=== PATIENT | male | born 1950 | race African-American/Black ===

== ENCOUNTER 2017-05-07 12:41 | Inpatient (IN) ==
--- NOTE | 2017-05-07 13:19 | PROVIDER DOCUMENTATION ---
HPI-Neurological Disorder - General Chief Complaint: Altered Mental Status Stated Complaint: UNRESPONSIVE Time Seen by Provider: 05/07/17 12:45 Source: patient, EMS notes reviewed, other ([facility] report) Allergies/Adverse Reactions: Patient Allergies Allergy/AdvReac Type Severity Reaction Status Date / Time No Known Allergies Allergy Verified 09/04/16 16:27 Home Medications: Home Medication List Medication Instructions Recorded Confirmed Last Taken Type Aspirin EC 1 tab PO DAILY 12/03/13 05/07/17 1 Day Ago History Clopidogrel [Plavix] 75 mg PO DAILY 12/03/13 05/07/17 1 Day Ago History Donepezil [Aricept] 10 mg PO QHS 12/03/13 05/07/17 1 Day Ago History Furosemide [Lasix] 40 mg PO DAILY 12/03/13 05/07/17 1 Day Ago History Insulin Glargine [Lantus] 40 unit SUBQ QAM 12/03/13 05/07/17 1 Day Ago History Metoprolol [Lopressor] 50 mg PO BID 12/03/13 05/07/17 1 Day Ago History Multivitamin [Multi-Day Vitamins] 1 each PO DAILY 12/03/13 05/07/17 1 Day Ago History Pantoprazole Sodium 20 mg PO DAILY 12/03/13 05/07/17 1 Day Ago History Docusate Sodium [Colace] 100 mg PO DAILY 03/14/15 05/07/17 1 Day Ago History Insulin Lispro [Humalog Kwikpen] 4 unit SQ BID 03/14/15 05/07/17 1 Day Ago History Gabapentin [Neurontin] 600 mg PO BID 09/04/16 05/07/17 1 Day Ago History Insulin Glargine,Hum.rec.anlog 20 unit SQ QHS 09/04/16 05/07/17 1 Day Ago History [Lantus Solostar] Lisinopril 2.5 mg PO DAILY 09/04/16 05/07/17 1 Day Ago History Metformin [Glucophage] 500 mg PO WBREAKFAST 09/04/16 05/07/17 1 Day Ago History - History of Present Illness-Neuro Nature of Presenting Problem: Patient is a pleasant 66 yrs old gentleman with history of dementia and multiple other comorbidites , the [place] resident , was sent from there for being found unresponsive and no pulse per the [facility] staff report Per EMS he had pulse and awake when they reached here. He is up here and talking. His response is slow . He is not oriented which seems to be his baseline. He has chronic right sided weakness which is due to the history of right sided CVA. He does not have any other particular complaint. No pain, no headache, no dizziness, no chest pain , no N/V,no diarrhea or constipation or any other complaints at all. Approximate time patient was last seen normal?: 11:00 Character of Altered Mental Status: reports: unchanged from baseline (At this point, seems to be around baseline.) Any recent trauma/injury?: reports: none New weakness or altered sensation location:: reports: none Cognitive Baseline: alert but disoriented Associated Symptoms: reports: denies symptoms, slurred speech Similar Symptoms Previously?: Yes (The previous ER visit in 08/2016 looks like having the same presentation . ) Recently seen or treated by another doctor?: No Review of Systems - Adult - REVIEW OF SYSTEMS - ADULT Constitutional: reports: no symptoms reported Eyes: reports: no symptoms reported Ears, Nose, Mouth & Throat: reports: no symptoms reported Cardiovascular: reports: no symptoms reported Respiratory: reports: no symptoms reported Gastrointestinal: reports: no symptoms reported Genitourinary: reports: no symptoms reported Musculoskeletal: reports: no symptoms reported Neurological: reports: no symptoms reported, other (Chronic right sidedweakness) Endocrine: reports: no symptoms reported Hematologic/Lymphatic: reports: no symptoms reported Allergic/Immunologic: reports: no symptoms reported Past History - Adult - PAST MEDICAL HISTORY-ADULT Review of Records: reports: Old Records Reviewed Major Childhood Illnesses: reports: denies history Cardiovascular: reports: blood clots, CAD, HTN, hyperlipidemia, PAD, PVD Respiratory: reports: denies history Gastrointestinal: reports: denies history Obstetrical/Gynecological: reports: denies history Genitourinary: reports: denies history Musculoskeletal: reports: denies history Neurological: reports: CVA, stroke deficits (right side) Endocrine/Immune: reports: denies history Other Conditions: reports: denies history - FAMILY HISTORY Family History: reviewed, not pertinent - SOCIAL HISTORY Smoking: denies Living Situation: other (Senior Living) Physical Exam- Neurological - Physical Exam-Neuro Initial Vital Signs Reviewed: Yes General Appearance: appears well, mild distress, slow to respond Eye Exam: bilateral eye: normal inspection, PERRL, EOMI HENMT: normocephalic/atraumatic Head Injury: no evidence of injury Neck: non-tender Respiratory: chest non-tender, lungs clear, normal breath sounds. negative: rales, rhonchi, wheezing Cardiovascular: normal peripheral pulses Abdominal Exam: non tender, soft, no organomegaly, no pulsatile mass, distended Lymphatic: no adenopathy Extremity: normal range of motion, other (Right arm weakness chronic. Right leg s/p BKA) back joiner Exam: normal hearing Progress - PLAN OF CARE/RESULTS Progress/Plan/Lab Results: Vital Signs - 8 hr 05/07/17 13:02 05/07/17 14:54 05/07/17 16:49 Temperature 99.0 F Pulse Rate 67 70 68 Respiratory Rate 13 13 16 Blood Pressure 130/86 131/54 127/74 O2 Sat by Pulse Oximetry 98 97 97 05/07/17 17:50 05/07/17 18:50 05/07/17 19:39 Temperature Pulse Rate 68 68 64 Respiratory Rate 12 13 13 Blood Pressure 158/88 145/75 125/73 O2 Sat by Pulse Oximetry 97 98 95 05/07/17 19:41 Temperature Pulse Rate 66 Respiratory Rate 9 L Blood Pressure 125/73 O2 Sat by Pulse Oximetry 98 Laboratory Results - last 24 hr 05/07/17 05/07/17 05/07/17 12:50 12:50 12:50 WBC 10.49 RBC 4.50 L Hgb 13.0 L Hct 40.2 L MCV 89.3 MCH 28.9 MCHC 32.3 L RDW Std Deviation 15.0 H Plt Count 332 MPV 10.2 Immature Gran % (Auto) 0.0 Neut % (Auto) 66.6 Lymph % (Auto) 21.7 [place] % (Auto) 8.6 Eos % (Auto) 2.7 Baso % (Auto) 0.4 Immature Gran # (Auto) 0.00 Neut # (Auto) 6.99 H Lymph # (Auto) 2.28 [place] # (Auto) 0.90 H Eos # (Auto) 0.28 Baso # (Auto) 0.04 PT INR PTT (Actin FS) Sodium 141 Potassium 3.9 Chloride 101 Carbon Dioxide 27 Anion Gap 13 BUN 12 Creatinine 1.4 H Estimated GFR/1.73 m2 > 60 BUN/Creatinine Ratio 9 Glucose 163 H Calculated Osmolality 285 Calcium 8.9 Total Bilirubin 0.60 AST 16 ALT 10 Alkaline Phosphatase 90 Ammonia Creatine Kinase 176 Troponin T Total Protein 7.1 Albumin 3.4 L Globulin 3.7 Albumin/Globulin Ratio 0.9 Urine Source Urine Color Urine Turbidity Urine pH Ur Specific [place] Urine Protein Ur Glucose (Stick) Ur Ketones (Stick) Urine Blood Urine Nitrite Urine Bilirubin Urobilinogen Dipstick Urine Leukocytes Urine WBC (Auto) Urine RBC (Auto) U Epithel Cells (Auto) Urine Bacteria (Auto) Urine Opiates Screen Ur Oxycodone Screen Ur Methadone, Qual Ur Barbiturates Screen Ur Phencyclidine Scrn Ur Amphetamines Screen U Benzodiazepines Scrn Urine Cocaine Screen U Cannabinoids Screen Plasma/Serum Ethyl Alc 05/07/17 05/07/17 05/07/17 12:50 12:50 12:50 WBC RBC Hgb Hct MCV MCH MCHC RDW Std Deviation Plt Count MPV Immature Gran % (Auto) Neut % (Auto) Lymph % (Auto) [place] % (Auto) Eos % (Auto) Baso % (Auto) Immature Gran # (Auto) Neut # (Auto) Lymph # (Auto) [place] # (Auto) Eos # (Auto) Baso # (Auto) PT 10.4 INR 0.99 PTT (Actin FS) 29.9 Sodium Potassium Chloride Carbon Dioxide Anion Gap BUN Creatinine Estimated GFR/1.73 m2 BUN/Creatinine Ratio Glucose Calculated Osmolality Calcium Total Bilirubin AST ALT Alkaline Phosphatase Ammonia 19 Creatine Kinase Troponin T 0.199 H Total Protein Albumin Globulin Albumin/Globulin Ratio Urine Source Urine Color Urine Turbidity Urine pH Ur Specific [place] Urine Protein Ur Glucose (Stick) Ur Ketones (Stick) Urine Blood Urine Nitrite Urine Bilirubin Urobilinogen Dipstick Urine Leukocytes Urine WBC (Auto) Urine RBC (Auto) U Epithel Cells (Auto) Urine Bacteria (Auto) Urine Opiates Screen Ur Oxycodone Screen Ur Methadone, Qual Ur Barbiturates Screen Ur Phencyclidine Scrn Ur Amphetamines Screen U Benzodiazepines Scrn Urine Cocaine Screen U Cannabinoids Screen Plasma/Serum Ethyl Alc 05/07/17 05/07/17 05/07/17 14:20 14:20 17:18 WBC RBC Hgb Hct MCV MCH MCHC RDW Std Deviation Plt Count MPV Immature Gran % (Auto) Neut % (Auto) Lymph % (Auto) [place] % (Auto) Eos % (Auto) Baso % (Auto) Immature Gran # (Auto) Neut # (Auto) Lymph # (Auto) [place] # (Auto) Eos # (Auto) Baso # (Auto) PT INR PTT (Actin FS) Sodium Potassium Chloride Carbon Dioxide Anion Gap BUN Creatinine Estimated GFR/1.73 m2 BUN/Creatinine Ratio Glucose Calculated Osmolality Calcium Total Bilirubin AST ALT Alkaline Phosphatase Ammonia Creatine Kinase Troponin T 0.180 H Total Protein Albumin Globulin Albumin/Globulin Ratio Urine Source CATH Urine Color YELLOW Urine Turbidity HAZY Urine pH 5.5 Ur Specific [place] 1.009 Urine Protein 100 A Ur Glucose (Stick) NEGATIVE Ur Ketones (Stick) NEGATIVE Urine Blood TRACE A Urine Nitrite POSITIVE A Urine Bilirubin NEGATIVE Urobilinogen Dipstick NORMAL Urine Leukocytes LARGE A Urine WBC (Auto) TNTC A Urine RBC (Auto) <10 U Epithel Cells (Auto) <10 Urine Bacteria (Auto) 3+ Urine Opiates Screen NONE DETECTED Ur Oxycodone Screen NONE DETECTED Ur Methadone, Qual NONE DETECTED Ur Barbiturates Screen NONE DETECTED Ur Phencyclidine Scrn NONE DETECTED Ur Amphetamines Screen NONE DETECTED U Benzodiazepines Scrn NONE DETECTED Urine Cocaine Screen NONE DETECTED U Cannabinoids Screen NONE DETECTED Plasma/Serum Ethyl Alc Orders Category Date Time Status Cardiac Monitoring DIRECTED Care 05/07/17 13:17 Active Finger Stick Blood Sugar (ED) DIRECTED Care 05/07/17 13:17 Active Oxygen Therapy- ED Nursing DIRECTED Care 05/07/17 13:17 Active Saline Loc NOW Care 05/07/17 13:17 Active CHEST-PORTABLE [RAD] Stat Exams 05/07/17 13:[address] ANGIOGRM/PULMONARY ARTERIES [CT] Stat Exams 05/07/17 13:[address] HEAD W/O CONTRAST [CT] Stat Exams 05/07/17 13:17 Completed ALCOHOL BLOOD Stat Lab 05/07/17 12:50 Completed AMMONIA [CHEM] Stat Lab 05/07/17 12:50 Completed CBC WITH ELECTRONIC DIFF [HEME] Stat Lab 05/07/17 12:50 Completed CK PROFILE [SP CHEM] Stat Lab 05/07/17 12:50 Completed COMPREHENSIVE METABOLIC PANEL [CHEM] Stat Lab 05/07/17 12:50 Completed PROTIME WITH INR [COAG] Stat Lab 05/07/17 12:50 Completed PTT [COAG] Stat Lab 05/07/17 12:50 Completed TROPONIN T Stat Lab 05/07/17 12:50 Completed TROPONIN T Stat Lab 05/07/17 17:18 Completed URINALYSIS W/POSS RFLX CULT-1 [URINALYSIS] Stat Lab 05/07/17 14:20 Completed URINE CULTURE [RM] Routine Lab 05/07/17 15:04 Received URINE DRUG SCREEN Stat Lab 05/07/17 14:20 Completed 0.9% Sodium Chloride Inj [Ns] 500 ml Med 05/07/17 17:11 Active IV 100 mls/hr CefTRIAXONE 1 GM/NS [Rocephin 1 gm/Ns] Med 05/07/17 16:40 Discontinued 1 gm in 50 ml .ROUTE As Directed CefTRIAXONE [Rocephin] Med 05/07/17 15:15 Discontinued 1 gm IV NOW ONE Pulse Oximetry Stat Oth 05/07/17 13:17 Completed EKG [EKG] Stat Ther 05/07/17 13:17 Ordered Result Diagrams: 05/07/17 12:50 05/07/17 12:50 - REASSESSMENT Reassessment #1 Time Reassessed: 02:30 Status: improving Reassessment #2 Time Reassessed: 03:30 Status: improving Reassessment #3 Time Reassessed: 04:30 Reassessment Comment: The troponin was elevated on first check. Almost same as per previous visit Reassessment #4 Time Reassessed: 19:50 Status: worsening Reassessment Comment: Now again , not much interactive and responding - EKG 1 Time of EKG reading by physician:: 13:10 (Some chronic changes. Same as the EKG of the last time ) EKG Read and Signed by:: Tom Meza Comments: EKG has NSR , some changes, same as of the [facility] visit. Dr. Castillo has check - CT/MRI 1 CT Study: Angiogram (CT Chest with PE protocol is wnl), Head (No acute finding) Impression: Normal Departure - Departure Date of Disposition Decision: 05/07/17 Time of Disposition Decision: 17:55 DIAGNOSIS: Altered mental state, UTI (urinary tract infection) Disposition: ADMITTED INPATIENT 09 Certified Medical Emergency: Emergent Condition: Good Additional Freetext Instructions: I was planning to let him go back to NH on CTX IM for three more days. Had to wait for a while for the 2nd Troponin to come back which was little elevated earlier. The 2nd troponin is lower than the first one. The Cr.is elevated to 1.4 which is chronically elevated for him. But now he again seems not to be much interactive and sleepy . Most likely it is due to UTI . He will benefit from hospitalization for couple of days on IV CTX. Have discussed with Hospitalist information assistant Dr. Markham who has kindly agreed to admit. Referrals and Follow-Ups: None,PCP [Primary Care Provider] - - Critical Care Note This patient required my direct & personal management of CC.: Yes Attestation - Physician/ OCTAVIANO Attestation Patient care was provided by Advanced Practice Provider:: Yes Advanced Practice Provider documentation review:: The Mid-level provider documentation, treatment plan and medical decision making was reviewed by the physician who agrees with all treatment and medical decision making by the MLP. The physician spent face to face time with patient:: Yes Advanced Practice Provider documentation review:: Supervising physician onsite and consulted in the evaluation and care of this patient. The physician did have a face to face encounter with the patient.
[2017-05-07 13:27] LABS: MANUAL DIFF NEEDED? NO
[2017-05-07 13:31] LABS: BASO% 0.4 % (0.0-0.8); EOS# 0.28 X1000 (0.0-0.7); EOS% 2.7 % (0.0-10.0); HEMATOCRIT 40.2 % (42.0-52.0); LYMPH# 2.28 X1000 (1.2-3.4); LYMPH% 21.7 % (20.5-51.1); MCH 28.9 PG (27-31); MCHC 32.3 g/dL (33-37); MCV 89.3 FL (81-99); MONO% 8.6 % (1.7-9.3); MPV 10.2 FL (7.4-10.4); NEUT% 66.6 % (42.2-75.2); PLT 332 X1000 (130-400)
[2017-05-07 13:42] LABS: INR 0.99; PROTIME 10.4 Seconds (9.2-11.7); PTT 29.9 Seconds (22.0-36.0)
[2017-05-07 13:48] LABS: AGAP 13; ALBUMIN 3.4 g/dL (3.5-5.0); ALKALINE PHOSPHATASE 90 U/L (32-122); BUN 12 mg/dL (8-22); CALCIUM 8.9 mg/dL (8.8-10.2); CHLORIDE 101 mmol/L (98-107); CK PROFILE 176 U/L (24-204); COSMO 285; GOT 16 U/L (10-34); GPT 10 U/L (10-44); POTASSIUM 3.9 mmol/L (3.5-5.1); SODIUM 141 mmol/L (136-145); TCO2 27 mmol/L (25-35); TOTAL PROTEIN 7.1 g/dL (6.3-8.3)
--- NOTE | 2017-05-07 14:09 | Diag Imaging Result Doc PS360 ---
EXAM: CHEST-PORTABLE INDICATION: AMS TECHNIQUE: One view COMPARISON: 09/04/2016 FINDINGS: There is evidence of prior granulomatous disease, stable. There is minimal subsegmental atelectasis versus scarring in the right lower lung zone. The lungs are grossly clear, otherwise. There is no discrete pleural fluid collection or pneumothorax. The cardiomediastinal silhouette and central vasculature are grossly unremarkable. IMPRESSION: Minimal right lower lung zone subsegmental atelectasis versus scarring. No definite acute pathology, otherwise. Electronically signed by Nima Gutierrez 05/07/2017 2:07 PM
--- NOTE | 2017-05-07 14:14 | Diag Imaging Result Doc PS360 ---
EXAM: CT HEAD W/O CONTRAST TECHNIQUE: Dose reduction protocol was used. INDICATION: stroke like symptoms COMPARISON: 12/04/2013 FINDINGS: There is extensive low-attenuation in the periventricular and subcortical white matter consistent with advanced microangiopathy, stable. There are several small stable chronic lacunar infarcts in the deep choudhary matter bilaterally, more so on the left. These are stable. There is no definite acute infarct given the limited sensitivity of CT versus MRI. There is no discrete intracranial mass, mass effect, or intracranial hemorrhage. The surrounding soft tissues and bony structures are essentially unremarkable. IMPRESSION: Stable advanced chronic changes. No definite acute pathology by CT. Electronically signed by Nima Gutierrez 05/07/2017 2:12 PM
[2017-05-07 14:42] LABS: URINE MICRO REVIEW NEEDED? NO; URINE SOURCE CATH
[2017-05-07 14:49] LABS: BILIRUBIN URINE NEGATIVE (NEGATIVE); BLOOD URINE TRACE (NEGATIVE); COLOR YELLOW; GLUCOSE URINE NEGATIVE (NEGATIVE); LEUKOCYTES URINE LARGE (NEGATIVE); NITRITE URINE POSITIVE (NEGATIVE); PH URINE 5.5; PROTEIN URINE 100 mg/dL (NEGATIVE); SP GRAVITY URINE 1.009; TURBIDITY URINE HAZY (CLEAR); UROBILINOGEN URINE NORMAL (NORMAL)
[2017-05-07 14:50] LABS: UR EPITHELIAL CELLS <10 /HPF (<10); URINE BACTERIA 3+ /HPF; URINE CULTURE NEEDED? YES; URINE RBC <10 /HPF (<10); URINE WBC TNTC /HPF (<10)
[2017-05-07 15:14] LABS: UR AMPHETAMINES QUAL NONE DETECTED (NONE DETECT); UR BARBITUATES QUAL NONE DETECTED (NONE DETECT); UR BENZODIAZEPIN QUAL NONE DETECTED (NONE DETECT); UR CANNABINOIDS QUAL NONE DETECTED (NONE DETECT); UR COCAINE QUAL NONE DETECTED (NONE DETECT); UR METHADONE QUAL NONE DETECTED (NONE DETECT); UR OPIATES QUAL NONE DETECTED (NONE DETECT); UR OXYCODONE QUAL NONE DETECTED (NONE DETECT); UR PCP QUAL NONE DETECTED (NONE DETECT)
[2017-05-07] MEDS ORDERED: ROCEPHIN IV ONE (15:15)
--- NOTE | 2017-05-07 15:45 | Diag Imaging Result Doc PS360 ---
EXAM: CT ANGIOGRM/PULMONARY ARTERIES INDICATION: Altered mental status, possible PE TECHNIQUE: In addition to the standard thin section CTA images, coronal and radial MIPS were obtained. COMPARISON: None. FINDINGS: There is no evidence of pulmonary embolism. There is mild thoracic aortic atherosclerotic calcification. There is no evidence of aneurysm. The heart is mildly prominent. There are a few tiny calcified left hilar lymph nodes indicating prior granulomatous disease. There are other mildly prominent noncalcified mediastinal and hilar lymph nodes that are nonspecific. There is mucoid debris in the mainstem bronchi bilaterally. There are couple calcified granulomata in the left lower lobe. There is minimal subsegmental atelectasis involving the inferior aspect of the right upper lobe. No airspace consolidations are identified, otherwise. There is no pleural fluid collection and no pneumothorax. IMPRESSION: 1.Nonspecific mild mediastinal and hilar lymphadenopathy. 2.Minimal subsegmental atelectasis in the inferior right upper lobe. 3.No evidence of pulmonary embolism. 4.Other incidental/nonacute findings detailed above. Electronically signed by Nima Gutierrez 05/07/2017 3:43 PM
[2017-05-07] MEDS ORDERED: ROCEPHIN 1 GM/NS 1 GM/50 ML IVPB ONE (16:40)
[2017-05-07] MEDS ORDERED: NS 500 ML IV ONE (17:11)
--- NOTE | 2017-05-07 17:19 | ED EKG INTERP ---
This chart was entered by Lakeisha Aguiar Scribe, acting as scribe for Radha Castillo MD. EKG Interpretation - EKG Time of EKG reading by physician:: 12:48 EKG Read and Signed by:: Radha Castillo EKG Interpretation (*Must complete 3 of following elements*): Abnormal Rate: 66 (septal infarct; ST and T wave abnormality, consider inferolateral ischemic) Rhythm: nsr Attestation - Physician/ OCTAVIANO Attestation Patient care was provided by Advanced Practice Provider:: No The physician spent face to face time with patient:: Yes Advanced Practice Provider documentation review:: Supervising physician onsite and consulted in the evaluation and care of this patient. The physician did have a face to face encounter with the patient. This chart was documented by the indicated scribe, (Lakeisha Aguiar Scribe) and accurately reflects the services I performed and decisions made by me, Radha Castillo MD, as attested by the provider's signature.
[2017-05-07] MEDS ORDERED: ZOFRAN IV PRN (21:56)
--- NOTE | 2017-05-08 00:39 | HISTORY AND PHYSICAL ---
PRIMARY PHYSICIAN: Dr. Bentley at [facility]. CHIEF COMPLAINT: Mental status changes. HISTORY OF PRESENTING ILLNESS: A 66-year-old male who resides at [facility] with a history of diabetes mellitus type 2, hypertension, CVA, GERD, was brought to the emergency department due to mental status changes. Patient was apparently more altered. He does have underlying dementia. However, it seems that he is not at his baseline. He was evaluated in the ER. He was mildly confused and he was found to have a urinary tract infection. The patient also on laboratory was found to have also elevated troponin. Due to his presenting symptoms, it was thought that he would need hospitalization for further management. At the time of my examination, patient only spoke garbled at times and most of the history was obtained from family member. PAST MEDICAL HISTORY: Diabetes mellitus type 2, hypertension, CVA, GERD. PAST SURGICAL HISTORY: Right AKA. ALLERGIES: No known drug allergies. CURRENT MEDICATIONS: List of medication on reconciliation sheet. SOCIAL HISTORY: He is a former smoker. History of alcohol abuse. No history of drug use. FAMILY HISTORY: Positive for coronary disease in mother. REVIEW OF SYSTEMS: Limited due to his current mental status which is altered. PHYSICAL EXAMINATION: GENERAL: The patient is mildly confused and altered. VITAL SIGNS: Temperature 99.0 degrees, pulse 68, respirations 16, blood pressure 127/74. HEENT: Atraumatic, normocephalic. PERRLA. NECK: No masses. CHEST: Clear to auscultation. CARDIOVASCULAR: Regular rate and rhythm. ABDOMEN: Soft. Positive bowel sounds. EXTREMITIES: Right AKA. NEUROLOGIC: He is awake and alert. He responds occasionally. GENITOURINARY: No bladder distention. SKIN: Dry and poor turgor. LABORATORIES AND STUDIES: WBC 10.49, hemoglobin 13.1, hematocrit 40.2, platelets 332,000. Sodium 141, potassium 3.9, chloride 101, CO2 27, BUN is 12, creatinine is 1.4, glucose is 163. Troponin 0.199. ASSESSMENT: A 66-year-old male who resides at [facility] with a history of diabetes mellitus type 2, hypertension, cerebrovascular accident, who was brought to the emergency department due to altered mental status. He was found to be mildly confused and also had abnormal labs including urinalysis that showed a urinary tract infection and also elevated troponin. Due to these presenting symptoms, he will need hospitalization for further management and assessment. 1. Altered mental status, not at baseline. 2. Underlying dementia. 3. Urinary tract infection. 4. Troponinemia. 5. Diabetes mellitus type 2. 6. Hypertension. 7. Acute kidney injury. PLAN: 1. We will admit patient to medical floor with telemetry. 2. We will continue with neuro checks q.2 hours. 3. We will check urine culture and start patient on IV antibiotics. 4. We will trend his troponins and consult Cardiology and check an echocardiogram. 5. Monitor blood glucose and put patient on sliding scale insulin regimen. 6. We will monitor blood pressure. Resume antihypertensive agents. 7. There is mild renal failure. We will continue with IV hydration. Monitor renal function. 8. We will put DVT prophylaxis with Lovenox. 9. We will continue to follow and reassess. cc: Allen Markham MD
[2017-05-08] MEDS: NS 1,000 ML IV SCH ×2 (02:18→15:15)
[2017-05-08 06:47] LABS: MANUAL DIFF NEEDED? NO
[2017-05-08 06:58] LABS: BASO% 0.4 % (0.0-0.8); EOS# 0.33 X1000 (0.0-0.7); EOS% 4.3 % (0.0-10.0); HEMATOCRIT 34.6 % (42.0-52.0); HEMOGLOBIN 10.9 g/dL (14.0-18.0); LYMPH# 1.98 X1000 (1.2-3.4); LYMPH% 26.1 % (20.5-51.1); MCH 28.8 PG (27-31); MCHC 31.5 g/dL (33-37); MCV 91.5 FL (81-99); MONO# 0.83 X1000 (0.11-0.59); MONO% 10.9 % (1.7-9.3); MPV 10.4 FL (7.4-10.4); NEUT% 58.3 % (42.2-75.2); PLT 278 X1000 (130-400); RBC 3.78 XMIL (4.7-6.1)
[2017-05-08 07:15] LABS: CALCIUM 8.6 mg/dL (8.8-10.2); MAGNESIUM 1.9 mg/dL (1.5-2.7); POTASSIUM 3.6 mmol/L (3.5-5.1)
[2017-05-08] MEDS: HUMULIN R SUBQ SCH ×4 (07:18→22:47)
[2017-05-08] MEDS ORDERED: INSULIN PEN NEEDLES ONE (07:51)
[2017-05-08] MEDS: PRINIVIL PO SCH (09:49)
[2017-05-08] MEDS: LASIX PO SCH (09:51)
[2017-05-08] MEDS: ASPIRIN EC PO SCH (09:52)
[2017-05-08] MEDS: COLACE PO SCH (09:52)
[2017-05-08] MEDS: THERA M PLUS PO SCH (09:52)
[2017-05-08] MEDS: LOPRESSOR PO SCH ×2 (09:52→20:30)
[2017-05-08] MEDS: NEURONTIN PO SCH ×2 (09:52→20:30)
[2017-05-08] MEDS: PROTONIX PO SCH (09:53)
[2017-05-08] MEDS: PLAVIX PO SCH (09:53)
[2017-05-08] MEDS: LOVENOX SUBQ SCH (09:54)
[2017-05-08] MEDS: LANTUS SUBQ SCH (10:35)
--- NOTE | 2017-05-08 12:35 | PROGRESS NOTE ---
DATE: 05/08/2017 SUBJECTIVE: No family members at the bedside. This patient is alert. He is following commands. He is oriented x2. He is not oriented in time. He is not complaining of chest pain or shortness of breath. She is tolerating p.o. He has a history of dementia but I do not know his baseline. OBJECTIVE: Vital Signs: Temperature 98.5 degrees, pulse 69, respiratory rate 20, blood pressure 149/62, oxygen saturation 99 on room air. HEENT: Head normocephalic. No trauma. PERRLA. Neck: Supple. No JVD. No masses. Central trachea. Chest: Clear to auscultation. No wheezing. No rales. Abdomen: Soft. Nontender, nondistended. No hepatosplenomegaly. Extremities: No edema. No clubbing. No cyanosis. He has a right above the amputation. Neurological: The patient is alert. He is oriented x2. He is not oriented in time. He has right-sided weakness in right upper extremity around 2/5 strength. LABORATORY: WBC 7.5, hemoglobin 10.9, hematocrit 34.6, platelets 278,000. Sodium 145, potassium 3.6, chloride 106, bicarbonate 29, BUN 14, creatinine 1.6, glucose 120, calcium 8.6, magnesium 1.5. Troponin 0.157. ASSESSMENT AND PLAN: 1. Altered the mental status. This patient is alert and oriented x2 today. I do not have any family members at the bedside. I do not know his baseline. This patient also has a baseline dementia. 2. Underlying dementia. As above. 3. Urinary tract infection. This is likely the cause of his altered mental status. We will continue with antibiotics. 4. Elevated troponins. Cardiology department has been consulted. We will monitor. 5. Chronic kidney disease this is his baseline. Continue to monitor. 6. Hypertension, stable. Continue with the same management. 7. Type 2 diabetes. Blood group closed has been controlled. He is on sliding scale insulin and insulin Lantus. Continue with pattern blood sugar. 8. Deep vein thrombosis prophylaxis. Continue with Lovenox. cc: El Crews MD
--- NOTE | 2017-05-08 15:15 | CONSULTATION ---
DATE OF CONSULTATION: 05/08/2017 INDICATION: Elevated troponin. HISTORY OF PRESENT ILLNESS: Mr. Wheeler is a 66-year-old male with a history of severe peripheral vascular disease who presented for evaluation of altered mental status. The patient seems back to his usual baseline. He is able answer questions. He denies any episodes of chest pain or shortness of breath. He is normally a resident of [facility]. Reportedly was diagnosed with a UTI. He was evaluated with troponins which were elevated, but again he has no symptoms of acute coronary syndrome. PAST MEDICAL HISTORY: 1. Significant for hypertension. 2. Diabetes. 3. Peripheral vascular disease with previous right-sided AKA. SOCIAL HISTORY: Former smoker. History of alcohol abuse. Current resident of [facility]. FAMILY HISTORY: Significant for coronary artery disease. REVIEW OF SYSTEMS: A 10 system review of systems is negative except for those mentioned in HPI. PHYSICAL EXAMINATION: Vital signs: The patient has been afebrile. Heart rates in the 60s to low 100s. Blood pressure 149/62. General: No acute distress. HEENT: Oropharynx is moist. Poor dentition. Eye examination shows pink conjunctivae. White sclerae. Neck: Examination shows no obvious thyromegaly or thyroid tenderness. Cardiovascular: He is in a regular rate and rhythm. He has no murmurs. He has no S3 present. No lower extremity edema. He has a right-sided above- knee amputation. Chest: Exam is clear to auscultation bilaterally. He has no increased work of breathing. Abdomen: Soft, nontender, nondistended. He has no obvious organomegaly. Skin: Warm and dry throughout without any rashes. Neurological: Moving all extremities well. Cranial nerves 2-12 are intact without any sensation deficits. Psychiatric: He seems alert and oriented. He is able answer all questions appropriately. DIAGNOSTICS: He had a pulmonary arteriogram yesterday demonstrating nonspecific mild mediastinal hilar lymphadenopathy. No evidence of pulmonary embolism. His head CT demonstrated stable advanced chronic changes. No evidence of acute disease. His laboratory findings demonstrate a white count of 7.6, hematocrit 34.6, platelet count of 278,000. Sodium 145, potassium 3.6, BUN 14, creatinine 1.6. Cardiac enzymes are elevated. They have been relatively flat. He has multiple elevations over multiple hospitalizations. This hospitalization he was 0.199 on presentation. He is most recently 0.155. ASSESSMENT: Troponin elevation likely supply/demand mismatch secondary to urinary tract infection. He had a markedly dirty urine with too numerous to count WBCs and 3+ bacteria. He is currently on antibiotics. He seems more appropriate from a mental standpoint. He has gram- negative rods in his urine. We could consider myocardial perfusion imaging as a risk assessment. Notably he has had multiple episodes of elevated cardiac enzymes with apparent negative cardiac evaluations in the past via nuclear scan. We will continue to follow for now. Patient is currently on aspirin, which I would recommend continuation of. cc: Mika Gan MD
--- NOTE | 2017-05-08 16:40 | ECHO REPORT ---
ORDER DATE: 05/07/2017 INDICATION: Elevated troponin. FINDINGS: 1. The right atrium appears normal in size. 2. Mild tricuspid regurgitation. Insufficient data to estimate RV systolic pressure. 3. Normal RV size and systolic function. 4. No significant pulmonic insufficiency. 5. Normal left atrial size at 3.8 cm. 6. No mitral valve prolapse. Mild mitral regurgitation. 7. Normal LV size, end-diastolic dimension of 4. Normal wall thicknesses, with a posterior and interventricular septal wall thickness 1.1 cm each. Normal LV systolic function. Estimated EF is 60%, with normal apparent wall motion. 8. Aortic valve is poorly visualized on 2-dimensional imaging. The valve is sclerotic. There is no significant gradient across the valve. I believe, likely, this is not a significant degree of aortic stenosis. 9. Aorta appears normal in visualized segments. 10. No pericardial effusion seen. cc: MD Allen Hitchcock MD
[2017-05-08] MEDS: ROCEPHIN 1 GM/NS 1 GM/50 ML IVPB IV SCH (16:58)
[2017-05-08] MEDS: ARICEPT PO SCH (20:30)
[2017-05-09] MEDS: NS 1,000 ML IV SCH ×2 (04:38→16:27)
[2017-05-09] MEDS: HUMULIN R SUBQ SCH ×4 (06:41→22:15)
[2017-05-09 06:54] LABS: BASO% 0.6 % (0.0-0.8); EOS# 0.45 X1000 (0.0-0.7); EOS% 6.4 % (0.0-10.0); HEMATOCRIT 33.4 % (42.0-52.0); HEMOGLOBIN 10.5 g/dL (14.0-18.0); IMM GRAN# 0.02 X1000 (0.0-0.04); IMM GRAN% 0.3 % (0.0-0.5); LYMPH# 1.84 X1000 (1.2-3.4); MANUAL DIFF NEEDED? NO; MCH 28.3 PG (27-31); MCHC 31.4 g/dL (33-37); MONO% 11.3 % (1.7-9.3); MPV 10.3 FL (7.4-10.4); NEUT% 55.4 % (42.2-75.2); PLT 272 X1000 (130-400); RBC 3.71 XMIL (4.7-6.1)
[2017-05-09 07:33] LABS: AGAP 10; BUN 11 mg/dL (8-22); CALCIUM 8.5 mg/dL (8.8-10.2); CHLORIDE 104 mmol/L (98-107); COSMO 280; POTASSIUM 3.6 mmol/L (3.5-5.1); SODIUM 142 mmol/L (136-145); TCO2 28 mmol/L (25-35)
--- NOTE | 2017-05-09 09:10 | EKG Report ---
Test Performed on : 05/07/2017 12:48:11 PM Test Reason : re-ordered/AMS Blood Pressure : / mmHG Vent. Rate : 066 BPM Atrial Rate : 066 BPM P-R Int : 128 ms QRS Dur : 068 ms QT Int : 448 ms P-R-T Axes : 056 024 191 degrees QTc Int : 469 ms Normal sinus rhythm. Septal infarct (cited on or before 24-APR-2008) ST \T\ T wave abnormality, consider inferolateral ischemia Abnormal ECG When compared with ECG of 04-SEP-2016 17:18, No significant change was found Unconfirmed Result
[2017-05-09] MEDS: PLAVIX PO SCH (09:36)
[2017-05-09] MEDS: NEURONTIN PO SCH (09:36)
[2017-05-09] MEDS: THERA M PLUS PO SCH (09:36)
[2017-05-09] MEDS: LOPRESSOR PO SCH ×2 (09:36→22:17)
[2017-05-09] MEDS: PROTONIX PO SCH (09:36)
[2017-05-09] MEDS: COLACE PO SCH (09:36)
[2017-05-09] MEDS: ASPIRIN EC PO SCH (09:36)
[2017-05-09] MEDS: PRINIVIL PO SCH (09:37)
[2017-05-09] MEDS: LOVENOX SUBQ SCH (09:37)
[2017-05-09] MEDS: LASIX PO SCH (09:37)
[2017-05-09] MEDS: LANTUS SUBQ SCH (09:52)
--- NOTE | 2017-05-09 11:30 | PROGRESS NOTE ---
DATE: 05/09/2017 SUBJECTIVE: Mr. Wheeler has no complaints of chest pain today. He opens his eyes to the examiner but he does not seem as interactive today as he was yesterday. PHYSICAL EXAMINATION: Vital Signs: He is afebrile. His heart rate is in the 60s to 70s predominantly. Blood pressure 149/63. Generally: No acute distress. Cardiovascular: He is in a regular rate and rhythm. He has no murmurs. He has no S3. He has no lower extremity edema. Chest: Examination is clear bilaterally. No increased work of breathing. Abdomen: Soft and nontender. PERTINENT DATA: White count 7, hematocrit is 33.4, platelet count is 272,000. Sodium 142, potassium 3.6, BUN 11, creatinine 1.2. ASSESSMENT: 1. Urinary tract infection. 2. Altered mental status. 3. Elevated troponin. PLAN: I believe most likely the altered mental status is secondary to the urinary tract infection which is being treated at this point. His echocardiogram does not demonstrate any significant wall motion abnormalities and has a normal ejection fraction. At this point, his troponin elevation is likely secondary to a supply/demand mismatch. Presently, I would continue him on his current medication regimen which includes aspirin. cc: Mika Gan MD
[2017-05-09] MEDS: ROCEPHIN 1 GM/NS 1 GM/50 ML IVPB IV SCH (16:24)
--- NOTE | 2017-05-09 20:17 | PROGRESS NOTE ---
DATE: 05/09/2017 SUBJECTIVE: The patient is sleepy and is not answering questions at this time. OBJECTIVE: Vital Signs: Temperature 98 degrees, blood pressure 150/65, heart rate 70, respirations 14, O2 saturations 99% on room air. General: This is a chronically ill-appearing, elderly male, lying in bed, in no acute distress. Head normocephalic atraumatic. Heart: S1, S2 normal. Regular rate and rhythm. Lungs: Clear to auscultation bilaterally. No wheezing. No rales. No rhonchi. Abdomen: Positive bowel sounds. Soft, nontender, nondistended. Extremities: Trace pedal edema. No cyanosis. No calf tenderness. LABS: White blood cell count 7, hemoglobin 10, hematocrit 33, platelets 272,000. Sodium 142, potassium 3.6, chloride 104, CO2 28, BUN 11, creatinine 1.2, glucose 162. ASSESSMENT AND PLAN: 1. Metabolic encephalopathy. This is likely secondary to the underlying urinary tract infection. Continue with the current IV antibiotic regimen. 2. Urinary tract infection secondary to Klebsiella. Continue on iron IV ceftriaxone. 3. Elevated troponin. Stable. Continue on the current cardiac medications. 4. Alzheimer's dementia. Continue on Aricept. 5. Hypertension. Continue on the current antihypertensive regimen. 6. Will consult physical therapy. 7. Disposition. We will plan to discharge the patient to the long term once medically stable. cc: Jolene Murcia MD
[2017-05-09] MEDS: ARICEPT PO SCH (22:17)
[2017-05-10] MEDS: NS 1,000 ML IV SCH (05:44)
[2017-05-10] MEDS: HUMULIN R SUBQ SCH (06:22)
[2017-05-10 06:40] LABS: HEMATOCRIT 30.6 % (42.0-52.0); HEMOGLOBIN 9.8 g/dL (14.0-18.0); MCH 29.4 PG (27-31); MCV 91.9 FL (81-99); MPV 10.3 FL (7.4-10.4); RBC 3.33 XMIL (4.7-6.1)
[2017-05-10 07:06] LABS: AGAP 11; BUN 12 mg/dL (8-22); CHLORIDE 106 mmol/L (98-107); COSMO 284; POTASSIUM 3.7 mmol/L (3.5-5.1); SODIUM 143 mmol/L (136-145); TCO2 26 mmol/L (25-35)
[2017-05-10] MEDS: LOPRESSOR PO SCH (08:44)
[2017-05-10] MEDS: THERA M PLUS PO SCH (08:44)
[2017-05-10] MEDS: ASPIRIN EC PO SCH (08:44)
[2017-05-10] MEDS: COLACE PO SCH (08:44)
[2017-05-10] MEDS: LASIX PO SCH (08:44)
[2017-05-10] MEDS: PRINIVIL PO SCH (08:45)
[2017-05-10] MEDS: PROTONIX PO SCH (08:46)
[2017-05-10] MEDS: LOVENOX SUBQ SCH (08:46)
[2017-05-10] MEDS: PLAVIX PO SCH (08:46)
[2017-05-10] MEDS: LANTUS SUBQ SCH (08:47)
--- NOTE | 2017-05-10 12:57 | DISCHARGE SUMMARY ---
ADMISSION DATE: 05/07/2017 DISCHARGE DATE: 05/10/2017 CONSULTATIONS: Dr. Mika Gan with Cardiology. PERTINENT PROCEDURES: 1. Head CT showed stable advanced chronic changes. No definite acute pathology by CT. 2. Pulmonary arteriogram showed nonspecific mild mediastinal and hilar lymphadenopathy, minimal subsegmental atelectasis in the inferior right lobe. No evidence of PE. 3. Echocardiogram showed an EF of 60% with normal wall motion. DISCHARGE DIAGNOSES: 1. Metabolic encephalopathy secondary to underlying urinary tract infection 2. Urinary tract infection secondary to Klebsiella. 3. Elevated troponin secondary to supply demand mismatch. 4. Alzheimer's dementia. 5. Hypertension. HOSPITAL COURSE: Mr. Wheeler is a 66-year-old male who is a resident of [facility]. He carries a past medical history of diabetes mellitus type 2, hypertension, CVA , GERD. He was brought to the ED secondary to mental status changes. He had apparently been more altered. He does have underlying dementia. In the ED he was found to be mildly confused. He was found to have a UTI as well as elevated troponin. He was started on IV antibiotics. His cardiac enzymes were trended with a cardiology consult. He underwent a head CT that was normal , pulmonary arteriogram that did not show any PE, echocardiogram that showed an EF of 60% with normal wall motion. His troponin elevation was likely secondary to supply demand mismatch. Cardiology recommended to continue on his current medication regimen that included an aspirin. He is appropriate for discharge back to [facility] today. VITAL SIGNS: Temperature is 98.6 degrees, heart rate 63, respirations 18, blood pressure 150/64, O2 is 99% on room air. DISCHARGE DIET: Diabetic. DISCHARGE MEDICATIONS: 1. Aspirin 81 mg p.o. daily. 2. Keflex 500 mg p.o. q.12 hours for 5 days. 3. Plavix 75 mg p.o. daily. 4. Colace 100 mg p.o. daily. 5. Aricept 10 mg p.o. at bedtime. 6. Neurontin 600 mg p.o. b.i.d. 7. Lantus 40 units subcutaneous q.a.m. 8. Lantus Solostar 20 units subcutaneous at bedtime. 9. Humulin KwikPen 4 units subcutaneously b.i.d. 10. Lisinopril 2.5 mg p.o. daily. 11. Lopressor 50 mg p.o. b.i.d. 12. Multivitamins 1 each p.o. daily. 13. Protonix 20 mg p.o. daily. FOLLOWUP: Mr. Wheeler is being discharged back to rehab. He will need to complete a full course of p.o. antibiotics. He can return to the ED for any worsening of symptoms. Dictated by ROBERTO Santos for Jolene Murcia MD cc: Jolene Murcia MD [facility]
[2017-05-10 16:37] VITALS: BP 150/61
[2017-05-10] MEDS ORDERED: ROCEPHIN 1 GM in NS 50 ML IV SCH (17:00)
== END 2017-05-10 14:32 ==
LOC: ED 12:41 → 3N 21:28 → SUATTDRO 21:28
PROVIDERS: ATTEND Internal Medicine